=== PATIENT | female | born 1995 | race Two or more races ===

== ENCOUNTER 2017-11-01 20:37 | Emergency (ER) | payer OTHER ==
[~2017-11-01] VITALS: Ht 160 cm; Wt 54.4 kg
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
--- NOTE | 2017-11-01 20:45 | NUR ---
PT TRYING TO GET OUT OF HER BED, AGITATED, NOT COOPERATING W/ STAFF. ORDER FOR RESTRAINTS GIVEN. PT WAS PLACED ON 4 PTS. WILL CONTINUE TO MONITOR.
[2017-11-01] MEDS ORDERED: OLANZAPINE 10 MG VIAL IM ONE ×3 (20:48→21:30)
--- NOTE | 2017-11-01 20:50 | NUR ---
PT STILL AGITATED. REFUSING BLOOD DRAW. DR BARON MADE AWARE.
--- NOTE | 2017-11-01 20:59 | NUR ---
medicated pt as ordered
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
--- NOTE | 2017-11-01 22:16 | NUR ---
PT SLEEPING ON MONITOR W/ STABLE VITALS. WILL CONTINUE TO MONITOR.
[2017-11-01 22:43] LABS: BASOPHILS # (AUTO) 0.1 /CMM (0.0-0.2); BASOPHILS % (AUTO) 1.2 % (0.0-2.0); EOSINOPHILS # (AUTO) 0.1 /CMM (0.0-0.7); HEMATOCRIT 39 % (33-45); HEMOGLOBIN 12.7 g/dL (11.5-14.8); LYMPHOCYTES % (AUTO) 34.7 % (20.0-44.0); MEAN CORPUSCULAR HEMOGLOBIN 27 PG (26.0-33.0); MEAN CORPUSCULAR HGB CONC 32 g/dl (31.0-36.0); MEAN CORPUSCULAR VOLUME 84 fL (82-100); MONOCYTES # (AUTO) 0.4 /CMM (0.1-1.30); MONOCYTES % (AUTO) 7.7 % (2.0-12.0); NEUTROPHILS # (AUTO) 3.1 /CMM (1.8-8.9); NEUTROPHILS % (AUTO) 54.4 % (43.0-81.0); PLATELET COUNT (AUTO) 213 /CMM (150-450); RDW COEFFICIENT OF VARIATION 14.6 (11.5-15.0); RED BLOOD CELL COUNT(AUTO) 4.66 MIL/uL (4.0-5.2); WHITE BLOOD COUNT (AUTO) 5.7 K/uL (4.3-11.0)
[2017-11-01 23:01] LABS: CALCIUM, SERUM 8.9 mg/dL (8.5-10.1); CREATININE 0.6 mg/dL (0.6-1.3); POTASSIUM 3.8 mmol/L (3.5-5.1)
[2017-11-01 23:07] LABS: ALBUMIN 3.5 g/dL (3.4-5.0); BILIRUBIN,DIRECT 0.1 mg/dL (0.0-0.2); BILIRUBIN,TOTAL 0.3 mg/dL (0.2-1.0); TOTAL PROTEIN, SERUM 7.3 g/dL (6.4-8.2)
[2017-11-01 23:08] LABS: SALICYLATE 0.6 mg/dL (2.8-20.0)
--- NOTE | 2017-11-01 23:14 | NUR ---
RECEIVED REPORT FROM CIRA CHERY
--- NOTE | 2017-11-01 23:25 | NUR ---
PT MOVED TO ER BED 10
--- NOTE | 2017-11-02 00:33 | NUR ---
ART AT BEDSIDE FOR EVAL.
--- NOTE | 2017-11-02 01:41 | NUR ---
Patient is resting comfortably in bed with eyes closed. Easily aroused. VSS
--- NOTE | 2017-11-02 02:29 | NUR ---
PT TRANSFERRED TO ER BED 4.
--- NOTE | 2017-11-02 02:29 | NUR ---
ASSUMED CARE OF PT.
--- NOTE | 2017-11-02 03:07 | NUR ---
PT APPEARS TO BE RESTING COMFORTABLY. PT IS TOD ON THE MONITOR, WITH HR 55. WILL CONTINUE TO MONITOR THE PT.
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
[2017-11-02 04:18] VITALS: BP 102/62
== END 2017-11-02 04:19 | disposition home or self-care (01) ==
LOC: ER 20:38
DX: F29 Unspecified psychosis not due to a substance or known physiological condition (principal); R45.1 Restlessness and agitation; F41.9 Anxiety disorder, unspecified
CPT/HCPCS: 36415; 80048-TC; 80076-TC; 84703-TC; 85025-TC; A4606; G0480; J3490; Z7610